=== PATIENT | female | born 1935 | race Caucasian/White ===

== ENCOUNTER 2020-08-19 14:03 | Emergency (ER) | payer OTHER ==
[~2020-08-19] VITALS: Ht 165.1 cm; Wt 36.3 kg
[2020-08-19] MEDS ORDERED: SYNTHROID88 MCG (14:08)
== END 2020-08-19 19:33 | disposition designated cancer center or children's hospital (05) ==
LOC: ER 14:03
DX: S06.6X0A Traumatic subarachnoid hemorrhage without loss of consciousness, initial encounter (principal); R41.0 Disorientation, unspecified; R55 Syncope and collapse; W18.09XA Striking against other object with subsequent fall, initial encounter; Y93.89 Activity, other specified; Y92.018 Other place in single-family (private) house as the place of occurrence of the external cause; Y99.8 Other external cause status; Z03.818 Encounter for observation for suspected exposure to other biological agents ruled out